=== PATIENT | male | born 1985 | race Caucasian/White ===

== ENCOUNTER 2017-09-17 | Emergency (ER) | payer OTHER ==
[~2017-09-17] VITALS: Ht 167.6 cm; Wt 93.2 kg
[2017-09-17 00:03] VITALS: BP 162/85; PULSE 118; TEMP 37.1; O2SAT 97; Ht 167.6 cm; Wt 93.2 kg
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
== END 2017-09-17 00:27 | disposition home or self-care (01) ==
LOC: C.EDB 00:02 → C.EDA 00:27
DX: S00.01XA Abrasion of scalp, initial encounter (principal); V49.40XA Driver injured in collision with unspecified motor vehicles in traffic accident, initial encounter; F17.200 Nicotine dependence, unspecified, uncomplicated; R03.0 Elevated blood-pressure reading, without diagnosis of hypertension